=== PATIENT | female | born 1980 | race Caucasian/White ===

== ENCOUNTER 2018-06-27 19:33 | Emergency (ER) | payer MEDICAID, OTHER ==
[2018-06-27] MEDS ORDERED: HYDROmorphONE/DILAUDID 2 MG/ML INJ IM ONE (19:48)
--- NOTE | 2018-06-27 19:50 | EDPHY ---
HPI/HX/ROS/PE/MDM Narrative: CHIEF COMPLAINT: Back pain HPI: The patient is a 37-year-old female with no significant past medical history okay. She complains of approximately 3-4 weeks of intermittent low back pain that began while she was pushing some heavy grocery carts at work 4 weeks ago. She describes the pain as feeling like something is "going out" in her lower back with radiation down the right posterior buttock. She denies any numbness, weakness, incontinence or difficulty walking. She has taken ibuprofen with minimal relief. She has not seen a doctor until today. She denies any fall or direct trauma to that area. She denies fever or dysuria. REVIEW OF SYSTEMS: Aside from elements discussed in the HPI, a comprehensive 10-point review of systems was reviewed and is negative. PMH: None significant. SOCIAL HISTORY: Denies alcohol or drug abuse. PHYSICAL EXAM: General:Patient is alert, in no acute distress. She is tearful and appears uncomfortable. She is standing. ENT:Eyes are normal to inspection. ENT inspection normal. Neck: Normal inspection. Full range of motion. Respiratory:No respiratory distress. Breath sounds normal bilaterally. Cardiovascular: Regular rate and rhythm. Strong peripheral pulses. Normal cap refill. Abdomen:The abdomen is nontender to palpation. There are no peritoneal signs. There are normal bowel sounds. Back: Normal to inspection. No tenderness to palpation. Skin: Normal color. No rash. Warm and dry. Extremities: Normal appearance. Full range of motion. Neuro: Oriented x3. Normal motor function. Normal sensory function. MDM: This is a young healthy female with non-traumatic back pain, consistent with sciatica. There are no signs of cauda equina, discitis or trauma. L-spine XR negative for fracture or other abnormality, but confirms DDD. UA negative for infection. I discussed option of MRI here but see no indication at this time. Patient comfortable with this plan as well as plan for outpatient [place] follow- up. We discussed strict return precautions. - Data Points Imaging Results: Imaging Impressions Lumbar Spine X-Ray 06/27/18 19:47 Impression: Mild degenerative lumbar disk disease. Laboratory Results: 06/27/18 20:40 Urine Color YELLOW Urine Appearance MODERATELY TURBID Urine pH 7.0 (5.0-7.5) Ur Specific [place] 1.021 (1.002-1.030) Urine Protein NEGATIVE (NEGATIVE) Urine Ketones NEGATIVE (NEGATIVE) Urine Blood NEGATIVE (NEGATIVE) Urine Nitrate NEGATIVE (NEGATIVE) Urine Bilirubin NEGATIVE (NEGATIVE) Urine Urobilinogen NEGATIVE EU EU (0.2-1.0) Ur Leukocyte Esterase NEGATIVE (NEGATIVE) Urine Glucose NEGATIVE (NEGATIVE) Medications Given: Discontinued Medications Hydromorphone HCl (Dilaudid) 0.5 mg IM EDNOW ONE Stop: 06/27/18 19:49 Last Admin: 06/27/18 20:17 Dose: 0.5 mg General Time Seen by Provider: 06/27/18 19:39 Initial Vital Signs: Initial Vital Signs Temperature (C) 36.7 C 06/27/18 19:35 Heart Rate 101 H 06/27/18 19:35 Respiratory Rate 20 06/27/18 19:35 Blood Pressure 139/89 H 06/27/18 19:35 O2 Sat (%) 96 06/27/18 19:35 O2 Delivery Mode Room Air Allergies/Adverse Reactions: No Known Allergies Allergy (Unverified 06/27/18 19:34) Home Medications: Medication Instructions Recorded Cyclobenzaprine [Flexeril] 10 mg PO TID #15 tab 06/27/18 Ibuprofen 06/27/18 predniSONE 60 mg PO DAILY 7 Days tab 06/27/18 Departure - Departure Disposition: Home, Routine, Self-Care Clinical Impression: Sciatica Qualifiers: Laterality: right Qualified Code(s): M54.31 - Sciatica, right side Condition: Good Instructions: Methylprednisolone (By mouth), Sciatica (ED) Additional Instructions: 1. Take Medrol as prescribed. Be sure to complete the entire prescription. 2. Use ibuprofen as directed on the packaging as needed for pain and inflammation over the next few days. 3. Follow up with back specialist in the next week. I recommend calling first thing Saturday morning to schedule this. 4. Return to the ED for severe pain, weakness in your legs, numbness in your genitals, incontinence, or other worsening of condition. Referrals: Joni Gan MD [Medical Doctor] - As per Instructions Prescriptions: Cyclobenzaprine [Flexeril] 10 mg PO TID #15 tab predniSONE 60 mg PO DAILY 7 Days tab
[2018-06-27 20:22] VITALS: BP 135/87
[2018-06-27] MEDS ORDERED: predniSONE 20 MG TAB PO ONE (21:10)
[2018-06-27] MEDS ORDERED: HYDROCOD/APAP 5/325 PREPACK#6 BTL TAKEHOME ONE (21:11)
== END 2018-06-27 21:38 | disposition home or self-care (01) ==
DX: M54.31 Sciatica, right side (principal); X50.0XXA Overexertion from strenuous movement or load, initial encounter; Y93.89 Activity, other specified; Y99.0 Civilian activity done for income or pay
CPT/HCPCS: J1170; J7512